=== PATIENT | female | born 1980 | race Caucasian/White ===

== ENCOUNTER 2018-10-14 17:08 | Emergency (ER) | payer SELFPAY ==
[~2018-10-14] VITALS: Wt 62.0 kg
[2018-10-14 17:15] VITALS: BP 116/74; PULSE 78; RESP 20
--- NOTE | 2018-10-14 18:00 | ERD ---
ER Documentation Chief Complaint Chief Complaint PALPITATION SINCE LAST NIGHT NO SOB. FEELING ANXIETY, NO N/V NO CP HPI This is a 37-year-old female patient who presents to the emergency room with complaint of irregular heartbeat times 2 weeks. Patient states during the heart palpitation episodes she has shortness of breath, chest pain, no nausea or vomiting. She is also complaining of the appearance of melasma on her face and is concerned that may be the 2 are related. Complains of generalized weakness and pain in wrists. Denies any chronic medical conditions, does not smoke, denies drug use. Patient is well appearing, NAD. ROS All systems reviewed and are negative except as per history of present illness. Medications Home Meds Active Scripts Hydroxyzine Pamoate* (Vistaril*) 25 Mg Capsule, 25 MG PO Q6H PRN for ANXIETY for 7 Days, #14 CAP Prov:MO COFFEY [employer] COUNSEL[employer] 10/14/18 Allergies Allergies: Coded Allergies: No Known Allergy (Unverified , 10/14/18) PMhx/Soc Medical and Surgical Hx: pt denies Medical Hx, pt denies Surgical Hx Hx Alcohol Use: No Hx Substance Use: No Hx Tobacco Use: No Smoking Status: Never smoker Physical Exam Vitals Vital Signs Date Temp Pulse Resp B/P (MAP) Pulse Ox O2 O2 Flow FiO2 Time Delivery Rate 10/14/18 98.5 78 20 116/74 98 17:15 (88) Physical Exam Const: No acute distress Head: Atraumatic, +melasma to BL upper and lower face Eyes: Normal Conjunctiva, PERRL, EOMI ENT: Normal External Ears, Nose and Mouth. Pharynx pink without exudate or lesions. Neck: Full range of motion. No meningismus. No thyromegaly. Resp: Clear to auscultation bilaterally Cardio: Regular rate and rhythm, no murmurs Abd: Soft, non tender, non distended. Normal bowel sounds Skin: No petechiae or rashes Back: No midline or flank tenderness, no CVT Ext: No cyanosis, or edema Neur: Awake and alert Psych: Normal Mood and Affect Result Diagram: 10/14/18180110/14/18 180 Results 24 hrs Laboratory Tests Test 10/14/18 18:02 10/14/18 18:04 White Blood Count 6.1 10^3/ul Red Blood Count 4.07 10^6/ul Hemoglobin 12.6 g/dl Hematocrit 37.7 % Mean Corpuscular Volume 92.6 fl Mean Corpuscular Hemoglobin 31.0 pg Mean Corpuscular Hemoglobin Concent 33.4 g/dl Red Cell Distribution Width 11.6 % Platelet Count 268 10^3/UL Mean Platelet Volume 9.5 fl Immature Granulocytes % 0.300 % Neutrophils % 56.6 % Lymphocytes % 32.7 % Monocytes % 8.4 % Eosinophils % 1.0 % Basophils % 1.0 % Nucleated Red Blood Cells % 0.0 /100WBC Immature Granulocytes # 0.020 10^3/ul Neutrophils # 3.4 10^3/ul Lymphocytes # 2.0 10^3/ul Monocytes # 0.5 10^3/ul Eosinophils # 0.1 10^3/ul Basophils # 0.1 10^3/ul Nucleated Red Blood Cells # 0.0 10^3/ul Urine Color YELLOW Urine Clarity SLIGHTLY CLOUDY Urine pH 7.0 Urine Specific Fitzgerald 1.021 Urine Ketones 1+ mg/dL Urine Nitrite NEGATIVE mg/dL Urine Bilirubin NEGATIVE mg/dL Urine Urobilinogen NEGATIVE mg/dL Urine Leukocyte Esterase TRACE Gera/ul Urine Microscopic RBC 1 /HPF Urine Microscopic WBC 5 /HPF Urine Squamous Epithelial Cells FEW /HPF Urine Mucus FEW /HPF Urine Hemoglobin NEGATIVE mg/dL Urine Glucose NEGATIVE mg/dL Urine Total Protein NEGATIVE mg/dl Sodium Level 140 mmol/L Potassium Level 3.9 mmol/L Chloride Level 102 mmol/L Carbon Dioxide Level 30 mmol/L Anion Gap 8 Blood Urea Nitrogen 7 mg/dl Creatinine 0.70 mg/dl Est Glomerular Filtrat Rate mL/min > 60 mL/min Glucose Level 100 mg/dl Calcium Level 10.0 mg/dl Phosphorus Level 3.4 mg/dl Magnesium Level 1.9 mg/dl Total Bilirubin 0.9 mg/dl Direct Bilirubin 0.00 mg/dl Indirect Bilirubin 0.9 mg/dl Aspartate Amino Transf (AST/SGOT) 20 IU/L Alanine Aminotransferase (ALT/SGPT) 8 IU/L Alkaline Phosphatase 48 IU/L Total Protein 8.2 g/dl Albumin 4.6 g/dl Globulin 3.60 g/dl Albumin/Globulin Ratio 1.27 Thyroid Stimulating Hormone (TSH) 2.280 MIU/L POC Beta HCG, Qualitative NEGATIVE Procedures/MDM This is a 37 yo female who presents with intermittent heart palpitations x 2 weeks. Patient does not report chest pain, shortness of breath, pain with inspiration, fever or cough. Physical exam and clinical presentation do not indicate cardiac ischemia, pulmonary embolus, pericarditis, pneumonia, goiter. Laboratory results do not indicate electrolyte imbalance, major organ dysfunction, thyroid dysfunction, infection, or anemia. Patient symptoms remained stable throughout ED course, patient well-appearing, NAD. Patient states she has primary care doctor she can follow-up with. Patient was provided with lab reports for follow-up. She was instructed on signs and symptoms of worsening of condition including chest pain, shortness of breath, diaphoresis, fever. Departure Condition: Stable Patient Instructions: Palpitations Referrals: [facility] Additional Instructions: Thank you very much for allowing us to participate in your care. Your health and safety is our top priority at [facility]. Call your primary care doctor TOMORROW for an appointment during the next 2-4 days and bring all the information and medications prescribed. Have prescriptions filled and follow precisely the directions on the label. If the symptoms get worse and your provider is unavailable, return to the Emergency Department immediately. MO COFFEY NP Oct 14, 2018 18:00
[2018-10-14] MEDS ORDERED: HYDR25CA PO (20:29)
== END 2018-10-14 20:48 | disposition home or self-care (01) ==
LOC: FTE 17:08
DX: R00.2 Palpitations (principal)
CPT/HCPCS: 80053; 81001; 81025; 83735; 84100; 84443; 85025; 93005